=== PATIENT | female | born 1980 | race Caucasian/White ===

== ENCOUNTER 2021-07-15 03:32 | Emergency (ER) | payer OTHER ==
[~2021-07-15 03:32] MED LIST: BACTRIM DS TAB1 EACH PO; POTASSIUM CHLO20 ME1 PO; PYRIDIUM200 MG PO; ZOFRAN4 MG PO
[2021-07-15] MEDS ORDERED: IBUPROFEN600 MG PO (04:11)
[2021-07-15] MEDS ORDERED: CLEOCIN HCL300 MG PO (04:11)
[2021-07-15] MEDS ORDERED: BACTROBAN OINT22 GM EXT (04:11)
== END 2021-07-15 04:35 | disposition home or self-care (01) ==
LOC: ER1 03:32
DX: L02.411 Cutaneous abscess of right axilla (principal); E07.9 Disorder of thyroid, unspecified; Z88.0 Allergy status to penicillin; F17.210 Nicotine dependence, cigarettes, uncomplicated
CPT/HCPCS: 10060; 87070; 87077; 87186; 87205; 96374; 99282